=== PATIENT | male | born 1990 | race Asian ===

== ENCOUNTER → 2018-07-11 09:11 | Outpatient (CLI) | payer OTHER, SELFPAY | PROVIDERS: Visit Provider Physician Assistant | DX: A09 Infectious gastroenteritis and colitis, unspecified (principal) | CPT/HCPCS: 87045; 87899 ==

== ENCOUNTER → 2020-06-06 14:58 | Outpatient (CLI) | payer BC, SELFPAY ==
--- NOTE | 2020-06-06 14:59 | DI.RAD.S_ITS ---
PROCEDURE: XR KNEE LT 3V INDICATIONS: L medial knee pain TECHNIQUE: 3 views of the knee were acquired. COMPARISON: None. FINDINGS: Bones: No fractures or dislocations. No suspicious bony lesions. Scattered degenerative subchondral sclerosis and spurring. Soft tissues: Moderate joint effusion. IMPRESSION: No fracture. Moderate joint effusion. Dictated by: Contreras Barajas M.D. on 06/06/2020 at 15:38 Approved by: Contreras Barajas M.D. on 06/06/2020 at 15:39
== END ==
PROVIDERS: Referring Provider Nurse Practitioner; Visit Provider Nurse Practitioner
DX: M25.562 Pain in left knee (principal); M25.462 Effusion, left knee
CPT/HCPCS: 73562

== ENCOUNTER → 2021-11-30 11:03 | Outpatient (CLI) | payer OTHER, SELFPAY ==
--- NOTE | 2021-11-30 11:08 | DI.RAD.S_ITS ---
PROCEDURE: XR FOOT RT MIN 3V INDICATIONS: pallet fell on foot TECHNIQUE: 3 views of the foot were acquired. COMPARISON: None. FINDINGS: Bones: There is a mildly displaced intra-articular fracture seen involving the middle phalanx of the 4th toe. Incidental note is made of an accessory ossicle, an os trigonum. Small plantar and Achilles calcaneal spurs are seen. Soft tissues: No tibiotalar joint effusion. Achilles tendon appears normal. IMPRESSION: 4th toe fracture. Dictated by: Gabriel Arceo M.D. on 11/30/2021 at 10:23 Approved by: Gabriel Arceo M.D. on 11/30/2021 at 10:24
== END ==
PROVIDERS: Referring Provider Physician Assistant; Visit Provider Physician Assistant
DX: S92.521A Displaced fracture of middle phalanx of right lesser toe(s), initial encounter for closed fracture (principal); M79.671 Pain in right foot; I99.8 Other disorder of circulatory system; W20.8XXA Other cause of strike by thrown, projected or falling object, initial encounter
CPT/HCPCS: 73630

== ENCOUNTER → 2023-08-26 12:57 | Outpatient (CLI) | payer OTHER, SELFPAY ==
--- NOTE | 2023-08-26 16:03 | DIET.OUTPTC ---
Dietary Outpatient Consultation Note Consultation Date: 08/26/2023 Pt preferred name: Tal Assessment: 32 y M referred for weight management and moderate mixed HDL. Tal reports goal of wanting to understand what makes up a balanced meal to improve energy level and help creating weekly plan. He works at [email or web address] 5p-1a and is in college. Is on Wellburtrin, but reports feeling no effects from it. Lives with family who does cooking, eats lunch from foods available at [email or web address] Diet recall: 1p Breakfast: rice and meat 9p Lunch: tv dinner or deli sandwich 2a dinner: rice and meat snacks: chips and sweets sometimes Drinks: 2 cups coffee and water Activity: 14-15k steps/day, 1 hr weight lifting at gym 3x/wk Allergies: Lactose intolerant (milk and cheese) GI symptoms: loose stools with dairy and greasy fast food Ht: 5 ft 9 in Wt: 288 lb and 3 oz (131 kg) BMI: 42.5 UBW: x Nutrition Diagnosis: Nutrition related knowledge defict r/t no previous nutrition edu as evidenced by pt report in nutrition assessment Interventions: 1. Provided MNT for weight management -Including: balanced meals, macros, label reading Goals: 1. Choose a prepared salad with meat and fruit, whole wheat deli sandwich and fruit, or chicken skewers and salad for lunch 2. Add 1 fruit or vegetable option to breakfast and/or dinner Monitoring/Evaluations: goals, diet recall, weight Electronically Signed by: Carolina Yost 08/26/23 16:03 Clinical Dietitian [address] [id number]
== END ==
LOC: DIET 12:58
PROVIDERS: PCP Family Medicine; Referring Provider Family Medicine
DX: Z71.3 Dietary counseling and surveillance (principal); E78.2 Mixed hyperlipidemia; Z68.41 Body mass index [BMI] 40.0-44.9, adult
CPT/HCPCS: 97802

== ENCOUNTER → 2024-04-28 09:12 | Outpatient (CLI) | payer OTHER, SELFPAY ==
--- NOTE | 2024-04-28 09:14 | DI.RAD.S_ITS ---
PROCEDURE: XR KNEE LT 3V INDICATIONS: KNEE PAIN TECHNIQUE: 3 views of the knee were acquired. COMPARISON: [facility], CR, XR KNEE LT 3V, 06/06/2020, 16:05. FINDINGS: Bones: No fractures or dislocations. No suspicious bony lesions. Soft tissues: Moderate joint effusion. No suspicious soft tissue calcifications. IMPRESSION: Moderate effusion. No visualized acute fracture or dislocation. However, if clinical concern and/or pain persist, short interval imaging followup in 7-10 days is recommended, as occult injury cannot be definitively excluded. Dictated by: Rasheeda Henderson M.D. on 04/28/2024 at 15:18 Approved by: Rasheeda Henderson M.D. on 04/28/2024 at 15:19
== END ==
PROVIDERS: PCP Family Medicine; Referring Provider Family Medicine; Visit Provider Family Medicine
DX: M25.562 Pain in left knee (principal); M25.462 Effusion, left knee; G89.29 Other chronic pain
CPT/HCPCS: 73562

== ENCOUNTER → 2024-05-05 17:18 | Outpatient (CLI) | payer OTHER, SELFPAY ==
--- NOTE | 2024-05-05 17:19 | DI.MRI.S_ITS ---
PROCEDURE: MR KNEE LT WO CON INDICATIONS: CHRONIC PAIN IN LEFT KNEE TECHNIQUE: Noncontrast sagittal PD fast spin echo and T2 fast spin echo with fat saturation, sagittal 3-D FLASH with fat saturation; coronal T1 spin echo and PD fast spin echo with fat saturation, and axial PD fast spin echo with fat saturation through the knee. COMPARISON: [facility], CR, XR KNEE LT 3V, 06/06/2020, 16:05. [facility], CR, XR KNEE LT 3V, 04/28/2024, 9:43. FINDINGS: Image quality: Excellent. Anterior cruciate ligament: Intact. Posterior cruciate ligament: Intact. Medial collateral ligament: Intact. Lateral collateral ligament: Intact. Medial meniscus: Mild intrasubstance degeneration at the junction of posterior horn and body of the medial meniscus, which does not meet imaging criteria for a meniscal tear. Lateral meniscus: Intact. Medial and lateral tendons: The semimembranosus tendon insertions appear intact. Visualized portions of the pes anserinus tendons appear normal. The popliteus tendon is intact. Iliotibial band appears normal. Anterior structures: Mild patella antoine. Mild patellar tendinosis. Distal quadriceps tendon is intact. No patellar subluxation. No femoral trochlear dysplasia or ventral trochlear prominence. Mild edema is seen at the superolateral aspect of the infrapatellar fat pad. Bones: No bone marrow contusions or fractures. Medial femorotibial cartilage: No focal cartilage defect. Lateral femorotibial cartilage: No focal cartilage defect. Patellofemoral cartilage: There is grade 3 cartilage irregularity at the median ridge of the patella and the adjacent medial and lateral facets. Cartilage fissuring is seen at the trochlear groove. Soft tissues: A lobulated cyst is seen adjacent to the posterior root attachment of the medial meniscus measuring 30 x 26 x 11 mm. There is a moderate to large joint effusion. Trace medial popliteal cyst. The musculature surrounding the knee is normal in bulk. Nonspecific subcutaneous prepatellar edema. Varicose veins are noted in the subcutaneous tissues. IMPRESSION: 1. 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 2. Patella antoine and mild patellar tendinosis. Mild edema is seen at the superolateral aspect of the infrapatellar fat pad, which can be seen in the setting of lateral femoral condyle-patellar tendon friction syndrome. 3. Mild intrasubstance degeneration in the medial meniscus without a discrete tear. 4. Cruciate and collateral ligaments are intact. No acute trabecular bone injury. Lateral meniscus is intact. 5. Moderate to large joint effusion. Lobular cyst adjacent to the posterior root attachment of the medial meniscus may represent a ganglion cyst, parameniscal cyst, or loculated joint fluid. Approved by: Aiden Woodall M.D. on 05/08/2024 at 10:09
== END ==
PROVIDERS: PCP Family Medicine; Referring Provider Family Medicine; Visit Provider Family Medicine
DX: M22.42 Chondromalacia patellae, left knee (principal); M25.862 Other specified joint disorders, left knee; M25.562 Pain in left knee; M25.462 Effusion, left knee; M23.92 Unspecified internal derangement of left knee; G89.29 Other chronic pain
CPT/HCPCS: 73721